=== PATIENT | female | born 1990 | race Caucasian/White ===

== ENCOUNTER 2017-04-20 20:49 | Emergency (ER) | payer OTHER ==
[2017-04-20 20:55] VITALS: BP 146/94; PULSE 97; RESP 16; TEMP 97; O2SAT 100
--- NOTE | 2017-04-20 21:49 | ED PDOC ---
Lower Extremity Pain/Injury Time Seen by Provider: 04/20/17 21:24 Chief Complaint (Nursing): Lower Extremity Problem/Injury Chief Complaint (Provider): Right knee injury History Per: Patient History/Exam Limitations: no limitations Onset/Duration Of Symptoms: Mins Current Symptoms Are (Timing): Still Present Additional History Per: Patient Additional Complaint(s): 27yo female, presents to the ED for evaluation of right knee injury after falling and hitting her knee against an escalator prior to arrival. Patient denies any other injuries. She offers no medical complaints. Of note, patient states her tetanus is not up to date. - Knee Description Of Injury: Fell Past Medical History Reviewed: Historical Data, Nursing Documentation, Vital Signs Vital Signs: Last Vital Signs Temp 97 F L 04/20/17 20:52 Pulse 97 H 04/20/17 20:52 Resp 16 04/20/17 20:52 BP 146/94 H 04/20/17 20:52 Pulse Ox 100 04/20/17 20:52 - Medical History PMH: No Chronic Diseases - Surgical History Surgical History: No Surg Hx - Family History Family History: States: No Known Family Hx - Home Medications Home Medications: Ambulatory Orders Medication Instructions Recorded Cephalexin [Keflex] 500 mg PO BID #14 capsule 04/20/17 - Allergies Allergies/Adverse Reactions: Allergies Allergy/AdvReac Type Severity Reaction Status Date / Time No Known Allergies Allergy Verified 04/20/17 20:51 Review of Systems Musculoskeletal: Positive for: Other (right knee pain after fall) Physical Exam - Reviewed Nursing Documentation Reviewed: Yes Vital Signs Reviewed: Yes - Physical Exam Appears: Positive for: Non-toxic, No Acute Distress Head Exam: Positive for: ATRAUMATIC, NORMAL INSPECTION, NORMOCEPHALIC Skin: Negative for: Normal Color Eye Exam: Positive for: Normal appearance ENT: Positive for: Normal ENT Inspection Neck: Positive for: Supple Respiratory: Negative for: Respiratory Distress Extremity: Positive for: Normal ROM, Other (1 - 1.5cm jagged laceration and 1 - 0.5cm lacerations, irregular in shape noted to right knee). Negative for: Deformity, Swelling Neurologic/Psych: Positive for: Alert, Oriented - ECG O2 Sat by Pulse Oximetry: 100 (RA) Pulse Ox Interpretation: Normal Medical Decision Making Medical Decision Making: Time: 2031 Impression: Lacerations to right knee Plan: -- See procedure note for wound repair. -- TDAP booster Scribe Attestation: Documented by Michelle Busby, acting as a scribe for Louise Delgado PA-C Provider Scribe Attestation: All medical record entries made by the Scribe were at my direction and personally dictated by me. I have reviewed the chart and agree that the record accurately reflects my personal performance of the history, physical exam, medical decision making, and the department course for this patient. I have also personally directed, reviewed, and agree with the discharge instructions and disposition. Procedures - Laceration/Wound Repair right knee Wound Length (cm): 2.0 (2 lacerations) Wound's Depth, Shape: superficial, irregular Anesthesia: 1% Lidocaine Wound Repaired With: Sutures Suture Size/Type: 4:0, nylon Number of Sutures: 5 Wound Complexity: Simple Sterile Dressing Applied?: Yes Progress: Tolerated procedure well Disposition - Clinical Impression Clinical Impression: Knee laceration, Tetanus toxoid vaccination administered at current visit - Patient ED Disposition Is Patient to be Admitted: No Counseled Patient/Family Regarding: Diagnosis, Need For Followup - Disposition Disposition: Routine/Home Disposition Time: 23:06 Condition: GOOD Additional Instructions: Do not get wet for 24-48 hours. Keep clean and dry with antibiotic ointment twice a day. Suture removal in 14 days. Prescriptions: Cephalexin [Keflex] 500 mg PO BID #14 capsule Instructions: Care For Your Stitches (ED) Forms: [facility] (Macedonian)
[2017-04-20] MEDS ORDERED: Lidocaine 2% w Epi 1:100,000 Inj IJ ONE (22:36)
[2017-04-20] MEDS ORDERED: Lidocaine 1% Inj (20ml) ONE (22:39)
== END 2017-04-21 00:41 | disposition home or self-care (01) ==
LOC: H.ER 20:49
DX: S81.011A Laceration without foreign body, right knee, initial encounter (principal); W19.XXXA Unspecified fall, initial encounter; Y92.89 Other specified places as the place of occurrence of the external cause